=== PATIENT | female | born 1965 | race Caucasian/White ===

== ENCOUNTER 2017-03-09 13:03 | Emergency (ER) | payer BC ==
[2017-03-09] MEDS ORDERED: Sodium Chloride 0.9% 10 ML Syringe FLUSH PRN (13:39)
--- NOTE | 2017-03-09 15:21 | CR ---
Chest: Portable view of the chest was obtained. Comparison: No previous study. Heart size and mediastinum are normal. Lungs are clear. Bony structures are grossly intact. Impression: 1. Nothing acute is identified on portable chest x-ray. Diagnostic code #1
[2017-03-09] MEDS ORDERED: Alum Hydrox/Mag Hydrox/Simeth 30 ML, Lidocaine 2% 15 ML PO ONE ×2 (15:32)
--- NOTE | 2017-03-09 15:34 | EDM.PDOC ---
ED HPI GENERAL MEDICAL PROBLEM - General Chief Complaint: Cardiovascular Problem Stated Complaint: IRREGULAR HEARBEAT/ HIGH BLOOD PRESSURE Time Seen by Provider: 03/09/17 13:25 Source of Information: Reports: Patient History Limitations: Reports: No Limitations - History of Present Illness INITIAL COMMENTS - FREE TEXT/NARRATIVE: 51-year-old female presents for evaluation treatment of chest discomfort. Patient reports that the symptoms started yesterday. She describes it as heartburn and a burning sensation and slight pressure. States that discomfort is located in the center of her chest. Reports associated high blood pressure, chest palpations and malaise. Denies any dizziness, syncope, leg pain, nausea, vomiting or diaphoresis. Reports she has been previously on prilosec. States she did take some OTC antacids which improved the discomfort briefly. Patient reports what concerned her the most is her blood pressure was 170/101 today. She is currently on metoprolol and was recently started on a blood pressure medications. Patient reports she had a cardiac ablation about 10 years ago. She frequently gets chest palpations. Patient reports she has been treated for a bladder infection 5-6 weeks ago. Her blood pressure at that time, when she presented to the walk-in was 170/110. No tobacco use. No family history of [place] at a young age. No personal history of MIs. PCP is Dr. Pace. Duration: Day(s): (2), Intermittent Location: Reports: Chest Epigastric Pain Score (Numeric/FACES): 3 - Related Data Allergies Allergy/AdvReac Type Severity Reaction Status Date / Time Sulfa (Sulfonamide Allergy Rash Verified 03/09/17 13:20 Antibiotics) Home Meds: Home Meds Lisinopril [Zestril] 40 mg PO DAILY 03/09/17 [History] Metoprolol Succinate [Toprol XL] 50 mg PO DAILY 03/09/17 [History] Past Medical History Cardiovascular History: Reports: Hypertension, Other (See Below) Other Cardiovascular History: SVT Gastrointestinal History: Reports: Cholelithiasis, Irritable Bowel Syndrome - Past Surgical History Cardiovascular Surgical History: Reports: Other (See Below) Other Cardiovascular Surgeries/Procedures: Ablation 2006 GI Surgical History: Reports: Cholecystectomy Social & Family History - Family History Family Medical History: Noncontributory - Tobacco Use Smoking Status *Q: Never Smoker - Caffeine Use Caffeine Use: Reports: Coffee - Recreational Drug Use Recreational Drug Use: No ED ROS GENERAL - Review of Systems Review Of Systems: See Below Constitutional: Reports: Malaise. Denies: Diaphoresis Respiratory: Denies: Shortness of Breath Cardiovascular: Reports: Chest Pain, Blood Pressure Problem. Denies: Edema, Lightheadedness, Syncope GI/Abdominal: Denies: Nausea, Vomiting Musculoskeletal: Denies: Leg Pain Neurological: Denies: Dizziness, Syncope Psychiatric: Reports: Anxiety ED EXAM, GENERAL - Physical Exam Exam: See Below Exam Limited By: No Limitations General Appearance: Alert, WD/WN, No Apparent Distress, Anxious Eye Exam: Bilateral Eye: Normal Inspection Ears: Normal External Exam Throat/Mouth: Normal Inspection, Normal Voice, No Airway Compromise Neck: Normal Inspection Respiratory/Chest: No Respiratory Distress, Lungs Clear, Normal Breath Sounds, Other (tenderness to palpation of the chest just right of the sternum at hte costosternal junction of rib 4) Cardiovascular: Normal Peripheral Pulses, Regular Rate, Rhythm, No Murmur Neurological: Alert, Oriented, Normal Cognition Psychiatric: Normal Affect, Normal Mood Skin Exam: Warm, Dry, Normal Color EKG INTERPRETATION EKG Date: 03/09/17 Time: 13:15 Rhythm: NSR Rate (Beats/Min): 87 [place]: Normal P-Wave: Present QRS: Normal ST-T: Normal QT: Normal EKG Interpretation Comments: NSR at 88 bpm. Near Q waves V1&V2 - consider old alteroseptal [place]. Borderline criteria for LVH. Reviewed by myself and Dr. Metz. Course - Vital Signs Last Recorded V/S: Last Vital Signs Temp 36.6 C 03/09/17 13:15 Pulse 83 03/09/17 13:15 Resp 16 03/09/17 13:15 BP 159/88 H 03/09/17 13:15 Pulse Ox 100 03/09/17 13:15 - Orders/Labs/Meds Labs: Laboratory Tests 03/09/17 03/09/17 03/09/17 Range/Units 13:30 13:55 13:55 WBC 3.89 L (3.98-10.04) K/mm3 RBC 4.68 (3.98-5.22) M/mm3 Hgb 14.0 (11.2-15.7) gm/L Hct 42.5 (34.1-44.9) % MCV 90.8 (79.4-94.8) fl MCH 29.9 (25.6-32.2) pg MCHC 32.9 (32.2-35.5) g/dl RDW Std Deviation 42.8 (36.4-46.3) fL Plt Count 198 (182-369) K/mm3 MPV 10.8 (9.4-12.3) fl Neutrophils % (Manual) 54 (40-60) % Band Neutrophils % 0 (0-10) % Lymphocytes % (Manual) 36 (20-40) % Atypical Lymphs % 0 % Monocytes % (Manual) 9 (2-10) % Eosinophils % (Manual) 0 L (0.7-5.8) % Basophils % (Manual) 1 (0.1-1.2) Platelet Estimate Adequate Plt Morphology Comment Normal RBC Morph Comment Normal Sodium 141 (136-145) mEq/L Potassium 4.1 (3.5-5.1) mEq/L Chloride 104 (98-107) mEq/L Carbon Dioxide 30 (21-32) mEq/L Anion Gap 11.1 (5-15) BUN 10 (7-18) mg/dL Creatinine 0.7 (0.55-1.02) mg/dL Est Cr Clr Drug Dosing 78.65 mL/min Estimated GFR (MDRD) > 60 (>60) mL/min BUN/Creatinine Ratio 14.3 (14-18) Glucose 112 H (74-106) mg/dL Calcium 9.6 (8.5-10.1) mg/dL Total Bilirubin 0.6 (0.2-1.0) mg/dL AST 21 (15-37) U/L ALT 18 (14-59) U/L Alkaline Phosphatase 48 (46-116) U/L CK-MB (CK-2) < 0.5 (0-3.6) ng/ml Troponin I < 0.017 (0.00-0.056) ng/mL Total Protein 8.0 (6.4-8.2) g/dl Albumin 4.0 (3.4-5.0) g/dl Globulin 4.0 gm/dL Albumin/Globulin Ratio 1.0 (1-2) Lipase 237 (73-393) U/L Urine Color Yellow (Yellow) Urine Appearance Clear (Clear) Urine pH 6.5 (5.0-8.0) Ur Specific [place] 1.015 (1.005-1.030) Urine Protein Negative (Negative) Urine Glucose (UA) Negative (Negative) Urine Ketones Negative (Negative) Urine Occult Blood Negative (Negative) Urine Nitrite Negative (Negative) Urine Bilirubin Negative (Negative) Urine Urobilinogen 0.2 (0.2-1.0) Ur Leukocyte Esterase Negative (Negative) Urine RBC Not seen (0-5) /hpf Urine WBC 0-5 (0-5) /hpf Ur Epithelial Cells 0-5 (0-5) /hpf Urine Bacteria Not seen (FEW) /hpf Urine Mucus Not seen (FEW) /hpf Meds: Medications Discontinued Medications Generic Name Dose Route Start Last Admin Trade Name Freq PRN Reason Stop Dose Admin Al Hydroxide/Mg Hydroxide 30 0 ml 03/09/17 15:32 03/09/17 15:44 ml/ Lidocaine HCl 15 ml PO 03/09/17 15:33 45 ml ONETIME ONE Administration Sodium Chloride 10 ml 03/09/17 13:39 03/09/17 15:44 Saline Flush FLUSH 10 ml ASDIRECTED PRN Administration Keep Vein Open - Radiology Interpretation Free Text/Narrative:: Chest: Portable view of the chest was obtained. Comparison: No previous study. Heart size and mediastinum are normal. Lungs are clear. Bony structures are grossly intact. Impression: 1. Nothing acute is identified on portable chest x-ray. - Re-Assessments/Exams Free Text/Narrative Re-Assessment/Exam: 03/09/17 16:39 Blood pressure has significantly improved without intervention. Blood pressure at 1604 was 140/76. Discussed labs, ekg and chest xray with the patient. Burning improved after GI cocktail. Continues to have some minor chest discomfort that is intermittent around rib 4. She was tender to that are on exam. Likely has reflux and chest wall discomfort. I will discharge her home today. Encouraged to use Tylenol, motrin and heat. She should also restart her Prilosec. Discharge instructions as documented. Departure - Departure Time of Disposition: 16:44 Disposition: Home, Self-Care 01 Condition: Good Clinical Impression: Gastritis, Chest wall pain Instructions: Gastritis, Adult, [id number], Chest Wall Pain, [id number] Referrals: Luly Pace, [Primary Care Provider] - Forms: ED Department Discharge Additional Instructions: Restart your prilosec. Follow-up with your PCP within a week. May try OTC tylenol, motrin and heat for additional relief. Please return to the ER should your symptoms change or worsen.
== END 2017-03-09 17:25 | disposition home or self-care (01) ==
LOC: JD.ED 13:03
DX: K29.70 Gastritis, unspecified, without bleeding (principal); R07.89 Other chest pain; I10 Essential (primary) hypertension; Z90.49 Acquired absence of other specified parts of digestive tract; Z88.2 Allergy status to sulfonamides; Z79.899 Other long term (current) drug therapy
CPT/HCPCS: 36415; 71010; 80053; 81001; 82553; 83690; 84484; 85025; 93005; 99285; A9270; J7050; 93010; 99283-25